=== PATIENT | male | born 1945 | race Caucasian/White ===

== ENCOUNTER 2019-05-04 05:50 | Inpatient (IN) ==
[2019-05-04 06:48] LABS: Basophils % 0.5 % (0.0-0.8); Eosinophils # 0.1 10*3/uL (0.0-0.87); Eosinophils % 2.3 % (0.00-10.9); Hematocrit 43.4 VOL% (42.0-52.0); Hemoglobin 14.6 GM/DL (14.0-18.0); Immature Granulocytes % 0.7 %; Immature Granulocytes Absolute 0.04 #; Lymphocytes # 1.3 10*3/uL (1.4-4.0); Lymphocytes % 22.2 % (21.2-54.2); Mean Corpuscular HGB Conc 33.6 GM/DL (32-36); Mean Corpuscular Volume 93.3 FL (87-102); Mean Platelet Volume 9.6 FL (9.6-12.0); Monocytes % 11.1 % (1.7-12.7); Neutrophils % 63.2 % (38.7-73.9); Platelet Count 163 T/CUMM (130-400); Red Blood Count 4.65 MC/CUMM (3.8-5.5); Red Cell Distribution Width 13.6 % (9.3-17.3); White Blood Count 5.8 T/CUMM (4-12)
[2019-05-04 07:00] LABS: INR 3.9; PT Patient Result 41.4 SECS (9.6-12.2)
[2019-05-04 07:08] LABS: Calcium 8.3 MG/DL (8.5-10.1)
[2019-05-04] MEDS ORDERED: ZALEPLON 5 MG CAPSULE PO PRN (07:27)
[2019-05-04] MEDS ORDERED: ONDANSETRON 4 MG/2 ML VIAL IV PRN (07:27)
[2019-05-04] MEDS ORDERED: DOCUSATE SODIUM 100 MG CAPSULE PO PRN (07:27)
[2019-05-04] MEDS ORDERED: MAGNESIUM SULF RIDER 4 GM in PREMIX 1 EACH IV PRN (07:27)
[2019-05-04] MEDS ORDERED: MAGNESIUM SULF RIDER 2 GM in PREMIX 1 EACH IV PRN (07:27)
[2019-05-04] MEDS ORDERED: ACETAMINOPHEN 325 MG TABLET PO PRN (07:27)
[2019-05-04] MEDS ORDERED: ACETAMINOPHEN 500 MG TABLET PO PRN (07:30)
[2019-05-04] MEDS ORDERED: NON-FORMULARY MEDICATION (Lutein 10 MG) PO SCH (09:00)
[2019-05-04] MEDS ORDERED: SIMVASTATIN 40 MG TABLET PO SCH (09:00)
[2019-05-04] MEDS ORDERED: ALBUTEROL 0.63 MG/3 ML NEB RESP TX SCH (09:00)
[2019-05-04] MEDS ORDERED: ALBUTEROL 2.5 MG/3 ML NEB RESP TX PRN (09:30)
[2019-05-04] MEDS: AMIODARONE 200 MG TABLET PO SCH ×2 (09:35→21:07)
[2019-05-04] MEDS: MULTIVITAMIN (CENTRUM) TABLET PO SCH (09:35)
[2019-05-04] MEDS: VITAMIN E 400 UNIT CAPSULE PO SCH (09:35)
[2019-05-04] MEDS: PARoxetine 20 MG TABLET PO SCH (09:36)
[2019-05-04] MEDS: ALLOPURINOL 100 MG TABLET PO SCH (09:36)
[2019-05-04] MEDS: CHOLECALCIFEROL 1,000 UNIT TABLET PO SCH (09:36)
[2019-05-04] MEDS: POTASSIUM CHLORIDE 20 MEQ TABLET PO SCH (09:37)
[2019-05-04] MEDS: DOCUSATE SODIUM 100 MG CAPSULE PO SCH (09:37)
[2019-05-04] MEDS: FUROSEMIDE 40 MG TABLET PO SCH (09:37)
[2019-05-04] MEDS: ZINC GLUCONATE 50 MG TABLET PO SCH (09:37)
[2019-05-04] MEDS: CALCIUM (CARBONATE) 600 MG TABLET PO SCH (09:37)
[2019-05-04] MEDS: LYSINE 500 MG TABLET PO SCH (09:38)
[2019-05-04 11:30] LABS: Troponin I 0.088 NG/ML (0.00-0.045)
[2019-05-04] MEDS: ALBUTEROL 0.63 MG/3 ML NEB RESP TX SCH (19:14)
[2019-05-04] MEDS: ROSUVASTATIN 20 MG TABLET PO SCH (21:07)
[2019-05-04] MEDS: MELATONIN 3 MG TABLET PO SCH (21:07)
[2019-05-04] MEDS: clonazePAM 0.5 MG TABLET PO SCH (21:07)
[2019-05-05 05:01] LABS: INR 2.6
[2019-05-05 05:03] LABS: PT Patient Result 27.9 SECS (9.6-12.2)
[2019-05-05 05:07] LABS: Calcium 8.6 MG/DL (8.5-10.1); Osmolality,Calculated 293.7 MOS/KG (273-304)
[2019-05-05 05:19] LABS: Albumin 3.2 G/DL (3.4-5.0); Bilirubin,Direct 0.12 MG/DL (0.0-0.20); Bilirubin,Indirect 0.9 MG/DL (0.0-1.0); Free T4 (Free Thyroxine) 0.82 NG/DL (0.76-1.46); Thyroid Stimulating Hormone 1.1 uIU/ml (0.358-3.74); Total Protein 5.9 G/DL (6.4-8.3)
[2019-05-05] MEDS: ALBUTEROL 0.63 MG/3 ML NEB RESP TX SCH ×2 (07:20→19:17)
[2019-05-05] MEDS: POTASSIUM CHLORIDE 20 MEQ TABLET PO SCH (10:10)
[2019-05-05] MEDS: ZINC GLUCONATE 50 MG TABLET PO SCH (10:10)
[2019-05-05] MEDS: AMIODARONE 200 MG TABLET PO SCH ×2 (10:11→21:08)
[2019-05-05] MEDS: CHOLECALCIFEROL 1,000 UNIT TABLET PO SCH (10:11)
[2019-05-05] MEDS: PARoxetine 20 MG TABLET PO SCH (10:11)
[2019-05-05] MEDS: FUROSEMIDE 40 MG TABLET PO SCH (10:11)
[2019-05-05] MEDS: DOCUSATE SODIUM 100 MG CAPSULE PO SCH (10:12)
[2019-05-05] MEDS: CALCIUM (CARBONATE) 600 MG TABLET PO SCH (10:12)
[2019-05-05] MEDS: ASPIRIN EC 81 MG TABLET PO SCH (10:12)
[2019-05-05] MEDS: METOPROLOL SUCCINATE XL 50 MG TABLET PO SCH (10:12)
[2019-05-05] MEDS: ALLOPURINOL 100 MG TABLET PO SCH (10:12)
[2019-05-05] MEDS: MULTIVITAMIN (CENTRUM) TABLET PO SCH (10:21)
[2019-05-05] MEDS: LYSINE 500 MG TABLET PO SCH (10:21)
[2019-05-05] MEDS: VITAMIN E 400 UNIT CAPSULE PO SCH (13:12)
[2019-05-05] MEDS: FLUTICASONE 50 MCG NASAL SPRAY 16 GM BOTTLE BOTH NARES PRN (18:02)
[2019-05-05] MEDS: FEXOFENADINE 180 MG TABLET PO PRN (21:07)
[2019-05-05] MEDS: ROSUVASTATIN 20 MG TABLET PO SCH (21:08)
[2019-05-05] MEDS: MELATONIN 3 MG TABLET PO SCH (21:08)
[2019-05-05] MEDS: clonazePAM 0.5 MG TABLET PO SCH (21:08)
[2019-05-06 06:19] LABS: PT Patient Result 21.6 SECS (9.6-12.2)
[2019-05-06 06:48] LABS: Calcium 8.2 MG/DL (8.5-10.1); Osmolality,Calculated 285.4 MOS/KG (273-304)
[2019-05-06] MEDS: ALBUTEROL 0.63 MG/3 ML NEB RESP TX SCH ×2 (07:30→19:37)
[2019-05-06] MEDS: CALCIUM (CARBONATE) 600 MG TABLET PO SCH (10:13)
[2019-05-06] MEDS: VITAMIN E 400 UNIT CAPSULE PO SCH (10:13)
[2019-05-06] MEDS: AMIODARONE 200 MG TABLET PO SCH ×2 (10:14→21:01)
[2019-05-06] MEDS: ASPIRIN EC 81 MG TABLET PO SCH (10:15)
[2019-05-06] MEDS: ALLOPURINOL 100 MG TABLET PO SCH (10:15)
[2019-05-06] MEDS: DOCUSATE SODIUM 100 MG CAPSULE PO SCH (10:15)
[2019-05-06] MEDS: FUROSEMIDE 40 MG TABLET PO SCH (10:15)
[2019-05-06] MEDS: ZINC GLUCONATE 50 MG TABLET PO SCH (10:16)
[2019-05-06] MEDS: PARoxetine 20 MG TABLET PO SCH (10:16)
[2019-05-06] MEDS: POTASSIUM CHLORIDE 20 MEQ TABLET PO SCH (10:16)
[2019-05-06] MEDS: METOPROLOL SUCCINATE XL 50 MG TABLET PO SCH (10:17)
[2019-05-06] MEDS: LYSINE 500 MG TABLET PO SCH (10:17)
[2019-05-06] MEDS: CHOLECALCIFEROL 1,000 UNIT TABLET PO SCH (10:17)
[2019-05-06] MEDS: MULTIVITAMIN (CENTRUM) TABLET PO SCH (10:17)
[2019-05-06] MEDS: FLUTICASONE 50 MCG NASAL SPRAY 16 GM BOTTLE BOTH NARES PRN (10:23)
[2019-05-06] MEDS: clonazePAM 0.5 MG TABLET PO SCH (21:01)
[2019-05-06] MEDS: MELATONIN 3 MG TABLET PO SCH (21:01)
[2019-05-06] MEDS: ROSUVASTATIN 20 MG TABLET PO SCH (21:02)
[2019-05-06] MEDS: FEXOFENADINE 180 MG TABLET PO PRN (21:06)
[2019-05-07 04:01] LABS: INR 1.8; PT Patient Result 19.4 SECS (9.6-12.2)
[2019-05-07 04:14] LABS: Calcium 8.4 MG/DL (8.5-10.1); Osmolality,Calculated 293.7 MOS/KG (273-304)
[2019-05-07] MEDS: ALBUTEROL 0.63 MG/3 ML NEB RESP TX SCH ×2 (07:44→20:50)
[2019-05-07] MEDS: ALLOPURINOL 100 MG TABLET PO SCH (09:04)
[2019-05-07] MEDS: FUROSEMIDE 40 MG TABLET PO SCH (09:04)
[2019-05-07] MEDS: CALCIUM (CARBONATE) 600 MG TABLET PO SCH (09:04)
[2019-05-07] MEDS: MULTIVITAMIN (CENTRUM) TABLET PO SCH (09:04)
[2019-05-07] MEDS: ZINC GLUCONATE 50 MG TABLET PO SCH (09:04)
[2019-05-07] MEDS: VITAMIN E 400 UNIT CAPSULE PO SCH (09:04)
[2019-05-07] MEDS: LYSINE 500 MG TABLET PO SCH (09:04)
[2019-05-07] MEDS: PARoxetine 20 MG TABLET PO SCH (09:04)
[2019-05-07] MEDS: ASPIRIN EC 81 MG TABLET PO SCH (09:05)
[2019-05-07] MEDS: POTASSIUM CHLORIDE 20 MEQ TABLET PO SCH (09:05)
[2019-05-07] MEDS: CHOLECALCIFEROL 1,000 UNIT TABLET PO SCH (09:05)
[2019-05-07] MEDS: DOCUSATE SODIUM 100 MG CAPSULE PO SCH (09:05)
[2019-05-07] MEDS: METOPROLOL SUCCINATE XL 50 MG TABLET PO SCH (09:07)
[2019-05-07] MEDS: AMIODARONE 200 MG TABLET PO SCH ×2 (09:08→20:59)
[2019-05-07] MEDS ORDERED: ENOXAPARIN 100 MG/ML SYRINGE SUBCUT ONE (13:00)
[2019-05-07] MEDS ORDERED: POTASSIUM CHLORIDE RIDER 10 MEQ in PREMIX 1 EACH IV PRN (13:01)
[2019-05-07] MEDS ORDERED: MAGNESIUM SULF RIDER 2 GM in PREMIX 1 EACH IV PRN (13:01)
[2019-05-07] MEDS: MELATONIN 3 MG TABLET PO SCH (20:59)
[2019-05-07] MEDS: clonazePAM 0.5 MG TABLET PO SCH (20:59)
[2019-05-07] MEDS: FEXOFENADINE 180 MG TABLET PO PRN (20:59)
[2019-05-07] MEDS: ROSUVASTATIN 20 MG TABLET PO SCH (21:00)
[2019-05-07] MEDS: SODIUM BICARB INJ 100 MEQ in SODIUM CHLORIDE 0.9% 1,000 ML IV SCH (23:50)
[2019-05-08 04:30] LABS: Basophils % 0.7 % (0.0-0.8); Eosinophils # 0.2 10*3/uL (0.0-0.87); Hematocrit 42.9 VOL% (42.0-52.0); Hemoglobin 14.4 GM/DL (14.0-18.0); Immature Granulocytes % 0.5 %; Immature Granulocytes Absolute 0.03 #; Lymphocytes # 1.6 10*3/uL (1.4-4.0); Mean Corpuscular HGB Conc 33.6 GM/DL (32-36); Mean Corpuscular Volume 91.9 FL (87-102); Mean Platelet Volume 9.9 FL (9.6-12.0); Monocytes % 10.2 % (1.7-12.7); Neutrophils % 59.6 % (38.7-73.9); Platelet Count 166 T/CUMM (130-400); Red Blood Count 4.67 MC/CUMM (3.8-5.5); Red Cell Distribution Width 13.4 % (9.3-17.3)
[2019-05-08 04:40] LABS: Calcium 8.4 MG/DL (8.5-10.1)
[2019-05-08 04:43] LABS: INR 1.3; PT Patient Result 14.6 SECS (9.6-12.2)
[2019-05-08] MEDS ORDERED: DIAZEPAM 5 MG TABLET PO ONE (06:00)
[2019-05-08] MEDS ORDERED: diphenhydrAMINE CAP 25 MG CAPSULE PO ONE (06:00)
[2019-05-08] MEDS: ALBUTEROL 0.63 MG/3 ML NEB RESP TX SCH ×2 (07:41→18:30)
[2019-05-08] MEDS ORDERED: LIDOCAINE 1% 20 ML VIAL ONE (09:58)
[2019-05-08] MEDS ORDERED: VERAPAMIL 5 MG/2 ML VIAL ONE (09:58)
[2019-05-08] MEDS ORDERED: NITROGLYCERIN DRIP 50 MG/250 ML BOTTLE IV ONE (09:58)
[2019-05-08] MEDS ORDERED: HEPARIN/NACL 0.9% 2 UNITS/ML 1,000 ML IV ONE (09:58)
[2019-05-08] MEDS ORDERED: MIDAZOLAM 2 MG/2 ML VIAL ONE ×2 (10:22→10:58)
[2019-05-08] MEDS ORDERED: fentaNYL 100 MCG/2 ML VIAL ONE (10:22)
[2019-05-08] MEDS ORDERED: ENOXAPARIN 60 MG/0.6 ML SYRINGE ONE (10:31)
[2019-05-08] MEDS ORDERED: HEPARIN/NACL 0.9% 2 UNITS/ML 500 ML IV ONE (10:55)
[2019-05-08] MEDS ORDERED: ADENOSINE 90 MG/30 ML VIAL IV ONE (10:58)
[2019-05-08] MEDS ORDERED: TICAGRELOR 90 MG TABLET ONE (11:38)
[2019-05-08] MEDS ORDERED: NITROGLYCERIN SL 0.4 MG TABLET SL PRN (11:48)
[2019-05-08] MEDS: SODIUM BICARB INJ 100 MEQ in SODIUM CHLORIDE 0.9% 1,000 ML IV SCH (13:04)
[2019-05-08] MEDS: MULTIVITAMIN (CENTRUM) TABLET PO SCH (13:33)
[2019-05-08] MEDS: CALCIUM (CARBONATE) 600 MG TABLET PO SCH (13:33)
[2019-05-08] MEDS: PARoxetine 20 MG TABLET PO SCH (13:33)
[2019-05-08] MEDS: ZINC GLUCONATE 50 MG TABLET PO SCH (13:33)
[2019-05-08] MEDS: ASPIRIN EC 81 MG TABLET PO SCH (13:33)
[2019-05-08] MEDS: CHOLECALCIFEROL 1,000 UNIT TABLET PO SCH (13:33)
[2019-05-08] MEDS: DOCUSATE SODIUM 100 MG CAPSULE PO SCH (13:34)
[2019-05-08] MEDS: ALLOPURINOL 100 MG TABLET PO SCH (13:34)
[2019-05-08] MEDS: AMIODARONE 200 MG TABLET PO SCH ×2 (13:34→21:34)
[2019-05-08] MEDS: POTASSIUM CHLORIDE 20 MEQ TABLET PO SCH (13:34)
[2019-05-08] MEDS: LYSINE 500 MG TABLET PO SCH (13:35)
[2019-05-08] MEDS: VITAMIN E 400 UNIT CAPSULE PO SCH (13:35)
[2019-05-08] MEDS: METOPROLOL SUCCINATE XL 50 MG TABLET PO SCH (13:35)
[2019-05-08 13:43] LABS: Osmolality,Calculated 292.1 MOS/KG (273-304)
[2019-05-08] MEDS ORDERED: WARFARIN 7.5 MG TABLET PO SCH (18:00)
[2019-05-08] MEDS: TICAGRELOR 90 MG TABLET PO SCH (21:34)
[2019-05-08] MEDS: ROSUVASTATIN 20 MG TABLET PO SCH (21:34)
[2019-05-08] MEDS: clonazePAM 0.5 MG TABLET PO SCH (21:34)
[2019-05-08] MEDS: MELATONIN 3 MG TABLET PO SCH (21:35)
[2019-05-09 06:22] LABS: Basophils # 0.1 10*3/uL (0.0-0.2); Basophils % 0.7 % (0.0-0.8); Eosinophils # 0.1 10*3/uL (0.0-0.87); Hematocrit 39.3 VOL% (42.0-52.0); Hemoglobin 13.3 GM/DL (14.0-18.0); Immature Granulocytes % 0.6 %; Immature Granulocytes Absolute 0.04 #; Lymphocytes # 1.1 10*3/uL (1.4-4.0); Lymphocytes % 15.6 % (21.2-54.2); Mean Corpuscular HGB Conc 33.8 GM/DL (32-36); Mean Corpuscular Volume 91.8 FL (87-102); Monocytes % 10.3 % (1.7-12.7); Neutrophils % 70.8 % (38.7-73.9); Platelet Count 154 T/CUMM (130-400); Red Blood Count 4.28 MC/CUMM (3.8-5.5); Red Cell Distribution Width 13.5 % (9.3-17.3)
[2019-05-09 06:41] LABS: Calcium 8.6 MG/DL (8.5-10.1); Osmolality,Calculated 293.7 MOS/KG (273-304)
[2019-05-09] MEDS: ALBUTEROL 0.63 MG/3 ML NEB RESP TX SCH (07:51)
[2019-05-09 08:30] VITALS: BP 141/79
[2019-05-09] MEDS: TICAGRELOR 90 MG TABLET PO SCH (09:19)
[2019-05-09] MEDS: LYSINE 500 MG TABLET PO SCH (09:19)
[2019-05-09] MEDS: DOCUSATE SODIUM 100 MG CAPSULE PO SCH (09:19)
[2019-05-09] MEDS: ASPIRIN EC 81 MG TABLET PO SCH (09:19)
[2019-05-09] MEDS: POTASSIUM CHLORIDE 20 MEQ TABLET PO SCH (09:19)
[2019-05-09] MEDS: AMIODARONE 200 MG TABLET PO SCH (09:19)
[2019-05-09] MEDS: MULTIVITAMIN (CENTRUM) TABLET PO SCH (09:19)
[2019-05-09] MEDS: VITAMIN E 400 UNIT CAPSULE PO SCH (09:19)
[2019-05-09] MEDS: ZINC GLUCONATE 50 MG TABLET PO SCH (09:19)
[2019-05-09] MEDS: CHOLECALCIFEROL 1,000 UNIT TABLET PO SCH (09:19)
[2019-05-09] MEDS: ALLOPURINOL 100 MG TABLET PO SCH (09:20)
[2019-05-09] MEDS: PARoxetine 20 MG TABLET PO SCH (09:20)
[2019-05-09] MEDS: METOPROLOL SUCCINATE XL 50 MG TABLET PO SCH (09:20)
[2019-05-09] MEDS: CALCIUM (CARBONATE) 600 MG TABLET PO SCH (09:20)
== END 2019-05-09 10:28 | disposition home or self-care (01) | DRG 247 ==
LOC: N.CL 05:50 → N.TELEN 05:50 → N.CL 05:54 → N.TELEN 08:41
PROVIDERS: ADMIT Internal Medicine Clinical Cardiac Electrophysiology; ATTEND Internal Medicine Clinical Cardiac Electrophysiology
PROC: CLWWIRE (2019-05-08 10:45)

== ENCOUNTER 2021-12-08 10:23 | Inpatient (IN) ==
[2021-12-08] MEDS ORDERED: ALUMINUM/MAGNES/SIMETH MAX STR 30 ML UDCUP PO PRN (10:31)
[2021-12-08] MEDS ORDERED: diphenhydrAMINE CAP 25 MG CAPSULE PO PRN (10:31)
[2021-12-08] MEDS ORDERED: MAGNESIUM SULF RIDER 2 GM/50 ML PREMIX IV PRN (10:31)
[2021-12-08] MEDS ORDERED: MORPHINE 2 MG/1 ML SYRINGE IV PRN (10:31)
[2021-12-08] MEDS ORDERED: ONDANSETRON 4 MG/2 ML VIAL IV PRN (10:31)
[2021-12-08] MEDS ORDERED: MAGNESIUM SULF RIDER 4 GM/100 ML PREMIX IV PRN (10:31)
[2021-12-08] MEDS ORDERED: ZALEPLON 5 MG CAPSULE PO PRN (10:31)
[2021-12-08] MEDS ORDERED: NITROGLYCERIN SL 0.4 MG TABLET SL PRN (14:21)
[2021-12-08 14:28] LABS: Calcium 8.8 MG/DL (8.5-10.1); Osmolality,Calculated 287.1 MOS/KG (273-304); Potassium 3.5 MMOL/L (3.5-5.1)
[2021-12-08] MEDS ORDERED: ALBUTEROL 2.5 MG/3 ML NEB RESP TX PRN (15:30)
[2021-12-08 15:37] LABS: INR 2.6
[2021-12-08 15:38] LABS: PT Patient Result 27.2 SECS (10.5-12.0)
[2021-12-08] MEDS: ROSUVASTATIN 20 MG TABLET PO SCH (21:04)
[2021-12-09 05:57] LABS: Basophils % 0.3 % (0.0-0.8); Eosinophils % 0.1 % (0.00-10.9); Hematocrit 38.4 VOL% (42.0-52.0); Hemoglobin 12.5 GM/DL (14.0-18.0); Immature Granulocytes % 0.6 %; Immature Granulocytes Absolute 0.06 #; Lymphocytes # 1.1 10*3/uL (1.4-4.0); Lymphocytes % 10.7 % (21.2-54.2); Mean Corpuscular HGB Conc 32.6 GM/DL (32-36); Mean Corpuscular Volume 92.1 FL (87-102); Mean Platelet Volume 9.5 FL (9.6-12.0); Monocytes # 1.2 10*3/uL (0.11-0.8); Neutrophils % 77.3 % (38.7-73.9); Platelet Count 177 T/CUMM (130-400); Red Blood Count 4.17 MC/CUMM (3.8-5.5); White Blood Count 10.6 T/CUMM (4-12)
[2021-12-09 06:06] LABS: INR 2.4
[2021-12-09 06:07] LABS: PT Patient Result 24.5 SECS (10.5-12.0)
[2021-12-09 06:17] LABS: Calcium 8.8 MG/DL (8.5-10.1); Osmolality,Calculated 287.1 MOS/KG (273-304); Potassium 3.5 MMOL/L (3.5-5.1)
[2021-12-09 06:34] LABS: Bilirubin,Total 1.1 MG/DL (0.20-1.00); Calcium 8.5 MG/DL (8.5-10.1); Osmolality,Calculated 290.8 MOS/KG (273-304); Potassium 4.2 MMOL/L (3.5-5.1); Total Protein 6.1 G/DL (6.4-8.2)
[2021-12-09] MEDS ORDERED: POTASSIUM CHLORIDE 20 MEQ TABLET PO ONE (09:52)
[2021-12-09] MEDS ORDERED: MAGNESIUM SULF RIDER 2 GM/50 ML PREMIX IV ONE (09:52)
[2021-12-09] MEDS: FERROUS SULFATE 325 MG TABLET PO SCH (10:24)
[2021-12-09] MEDS: PANTOPRAZOLE 40 MG TABLET PO SCH (10:24)
[2021-12-09] MEDS: allopurinoL 100 MG TABLET PO SCH (10:24)
[2021-12-09] MEDS: IRON (CARBONYL)/VIT C/B12/FA TABLET PO SCH (10:24)
[2021-12-09] MEDS: amLODIPine 10 MG TABLET PO SCH (10:24)
[2021-12-09] MEDS: PARoxetine 20 MG TABLET PO SCH (10:31)
[2021-12-09] MEDS: ACETAMINOPHEN 325 MG TABLET PO PRN (15:00)
[2021-12-09] MEDS: SODIUM CHLORIDE 0.45% 1,000 ML IV SCH (15:00)
[2021-12-09 15:19] LABS: Basophils % 0.1 % (0.0-0.8); Hematocrit 39.1 VOL% (42.0-52.0); Hemoglobin 13.1 GM/DL (14.0-18.0); Immature Granulocytes % 0.5 %; Immature Granulocytes Absolute 0.06 #; Lymphocytes # 0.9 10*3/uL (1.4-4.0); Lymphocytes % 7.3 % (21.2-54.2); Mean Corpuscular HGB Conc 33.5 GM/DL (32-36); Mean Corpuscular Volume 91.4 FL (87-102); Monocytes # 0.9 10*3/uL (0.11-0.8); Monocytes % 7.2 % (1.7-12.7); Neutrophils % 84.9 % (38.7-73.9); Platelet Count 207 T/CUMM (130-400); Red Blood Count 4.28 MC/CUMM (3.8-5.5); Red Cell Distribution Width 15.2 % (9.3-17.3); White Blood Count 12.3 T/CUMM (4-12)
[2021-12-09 15:36] LABS: Calcium 8.7 MG/DL (8.5-10.1); Osmolality,Calculated 285.3 MOS/KG (273-304); Potassium 3.7 MMOL/L (3.5-5.1)
[2021-12-09 16:08] LABS: Bacteria,Urine Occasional /HPF (Few); Mucus,Urine Occasional /LPF (Occasional); Squamous Epithelial Cell,Urine Occasional /HPF (0-10)
[2021-12-09 16:15] LABS: Bilirubin,Urine Negative (Negative); Blood, Urine Negative (Negative); Glucose,Urine (UA) Negative (Negative); Ketones,Urine 15 mg/dL (Negative); Nitrite,Urine Negative (Negative); Protein,Urine 100 mg/dL (Negative); Urine Appearance Clear (Clear); Urine Color Yellow (Yellow); Urine Urobilinogen 0.2 eU/dL (<2.0); Urine pH 5.5 (4.5-8.0)
[2021-12-09] MEDS: WARFARIN 2.5 MG TABLET PO SCH (16:45)
[2021-12-09] MEDS: cefTRIAXone 1,000 MG in SODIUM CHLORIDE 0.9% 100 ML IV SCH (16:45)
[2021-12-09] MEDS: AZITHROMYCIN INJ 500 MG in SODIUM CHLORIDE 0.9% 250 ML IV SCH (17:45)
[2021-12-09] MEDS: ROSUVASTATIN 20 MG TABLET PO SCH (21:27)
[2021-12-09] MEDS: FAMOTIDINE 20 MG TABLET PO SCH (21:28)
[2021-12-09] MEDS: ASCORBIC ACID 500 MG TABLET PO SCH (21:28)
[2021-12-10 04:35] LABS: Basophils % 0.3 % (0.0-0.8); Hematocrit 38.5 VOL% (42.0-52.0); Hemoglobin 12.7 GM/DL (14.0-18.0); Immature Granulocytes % 0.5 %; Immature Granulocytes Absolute 0.06 #; Lymphocytes # 1.3 10*3/uL (1.4-4.0); Lymphocytes % 11.7 % (21.2-54.2); Mean Corpuscular Volume 93.9 FL (87-102); Mean Platelet Volume 9.8 FL (9.6-12.0); Monocytes # 1.4 10*3/uL (0.11-0.8); Monocytes % 12.8 % (1.7-12.7); Neutrophils % 74.7 % (38.7-73.9); Platelet Count 176 T/CUMM (130-400); Red Cell Distribution Width 15.1 % (9.3-17.3); White Blood Count 11.1 T/CUMM (4-12)
[2021-12-10 04:50] LABS: Calcium 8.7 MG/DL (8.5-10.1); Osmolality,Calculated 279.7 MOS/KG (273-304); Potassium 4.1 MMOL/L (3.5-5.1)
[2021-12-10] MEDS: SODIUM CHLORIDE 0.45% 1,000 ML IV SCH (06:18)
[2021-12-10] MEDS: IRON (CARBONYL)/VIT C/B12/FA TABLET PO SCH (08:01)
[2021-12-10] MEDS: WARFARIN 2.5 MG TABLET PO SCH (08:01)
[2021-12-10] MEDS: FAMOTIDINE 20 MG TABLET PO SCH ×2 (08:01→20:59)
[2021-12-10] MEDS: PANTOPRAZOLE 40 MG TABLET PO SCH (08:02)
[2021-12-10] MEDS: amLODIPine 10 MG TABLET PO SCH (08:02)
[2021-12-10] MEDS: ASCORBIC ACID 500 MG TABLET PO SCH ×2 (08:02→20:59)
[2021-12-10] MEDS: FERROUS SULFATE 325 MG TABLET PO SCH (08:02)
[2021-12-10] MEDS: allopurinoL 100 MG TABLET PO SCH (08:03)
[2021-12-10] MEDS: PARoxetine 20 MG TABLET PO SCH (08:11)
[2021-12-10] MEDS ORDERED: clonazePAM 0.5 MG TABLET PO PRN (14:17)
[2021-12-10] MEDS: cefTRIAXone 1,000 MG in SODIUM CHLORIDE 0.9% 100 ML IV SCH (15:13)
[2021-12-10] MEDS: AZITHROMYCIN INJ 500 MG in SODIUM CHLORIDE 0.9% 250 ML IV SCH (15:46)
[2021-12-10] MEDS: PROPRANOLOL 60 MG PO SCH (15:46)
[2021-12-10] MEDS: ACETAMINOPHEN 325 MG TABLET PO PRN (16:31)
[2021-12-10] MEDS: clonazePAM 0.5 MG TABLET PO SCH (16:33)
[2021-12-10] MEDS: ROSUVASTATIN 20 MG TABLET PO SCH (20:59)
[2021-12-11 05:16] LABS: Basophils % 0.3 % (0.0-0.8); Eosinophils % 0.1 % (0.00-10.9); Hematocrit 33.4 VOL% (42.0-52.0); Immature Granulocytes % 0.5 %; Immature Granulocytes Absolute 0.05 #; Lymphocytes # 1.2 10*3/uL (1.4-4.0); Lymphocytes % 11.3 % (21.2-54.2); Mean Corpuscular HGB Conc 32.9 GM/DL (32-36); Mean Platelet Volume 10.6 FL (9.6-12.0); Monocytes # 1.3 10*3/uL (0.11-0.8); Monocytes % 12.2 % (1.7-12.7); Neutrophils % 75.6 % (38.7-73.9); Platelet Count 196 T/CUMM (130-400); Red Blood Count 3.59 MC/CUMM (3.8-5.5); Red Cell Distribution Width 15.2 % (9.3-17.3); White Blood Count 10.3 T/CUMM (4-12)
[2021-12-11 05:28] LABS: INR 2.8
[2021-12-11 05:29] LABS: PT Patient Result 28.3 SECS (10.5-12.0)
[2021-12-11 05:42] LABS: Calcium 8.6 MG/DL (8.5-10.1); Osmolality,Calculated 285.4 MOS/KG (273-304); Potassium 3.5 MMOL/L (3.5-5.1)
[2021-12-11] MEDS ORDERED: AZITHROMYCIN 250 MG TABLET PO ONE (06:58)
[2021-12-11] MEDS: FERROUS SULFATE 325 MG TABLET PO SCH (08:22)
[2021-12-11] MEDS: clonazePAM 0.5 MG TABLET PO SCH ×2 (08:22→20:55)
[2021-12-11] MEDS: WARFARIN 2.5 MG TABLET PO SCH (08:22)
[2021-12-11] MEDS: IRON (CARBONYL)/VIT C/B12/FA TABLET PO SCH (08:22)
[2021-12-11] MEDS: amLODIPine 10 MG TABLET PO SCH (08:22)
[2021-12-11] MEDS: FAMOTIDINE 20 MG TABLET PO SCH ×2 (08:23→20:54)
[2021-12-11] MEDS: PANTOPRAZOLE 40 MG TABLET PO SCH (08:23)
[2021-12-11] MEDS: allopurinoL 100 MG TABLET PO SCH (08:23)
[2021-12-11] MEDS: ASCORBIC ACID 500 MG TABLET PO SCH ×2 (08:23→20:54)
[2021-12-11] MEDS: PARoxetine 20 MG TABLET PO SCH (08:23)
[2021-12-11] MEDS: PROPRANOLOL 60 MG PO SCH (08:23)
[2021-12-11] MEDS ORDERED: ASPIRIN EC 81 MG TABLET PO SCH (09:00)
[2021-12-11] MEDS: ROSUVASTATIN 20 MG TABLET PO SCH (20:54)
[2021-12-12 05:15] LABS: Basophils % 0.4 % (0.0-0.8); Eosinophils # 0.1 10*3/uL (0.0-0.87); Eosinophils % 1.7 % (0.00-10.9); Hematocrit 30.6 VOL% (42.0-52.0); Hemoglobin 10.1 GM/DL (14.0-18.0); Immature Granulocytes % 0.4 %; Immature Granulocytes Absolute 0.03 #; Lymphocytes # 0.9 10*3/uL (1.4-4.0); Lymphocytes % 12.2 % (21.2-54.2); Mean Corpuscular Volume 92.7 FL (87-102); Monocytes # 0.8 10*3/uL (0.11-0.8); Monocytes % 10.7 % (1.7-12.7); Neutrophils % 74.6 % (38.7-73.9); Platelet Count 196 T/CUMM (130-400); White Blood Count 7.7 T/CUMM (4-12)
[2021-12-12 05:33] LABS: Calcium 8.6 MG/DL (8.5-10.1); Osmolality,Calculated 287.4 MOS/KG (273-304); Potassium 3.5 MMOL/L (3.5-5.1)
[2021-12-12] MEDS ORDERED: POTASSIUM CHLORIDE 20 MEQ TABLET PO ONE (09:14)
[2021-12-12] MEDS: amLODIPine 10 MG TABLET PO SCH (09:45)
[2021-12-12] MEDS: ASCORBIC ACID 500 MG TABLET PO SCH ×2 (09:45→21:11)
[2021-12-12] MEDS: IRON (CARBONYL)/VIT C/B12/FA TABLET PO SCH (09:45)
[2021-12-12] MEDS: clonazePAM 0.5 MG TABLET PO SCH ×2 (09:45→22:23)
[2021-12-12] MEDS: FAMOTIDINE 20 MG TABLET PO SCH ×2 (09:46→21:11)
[2021-12-12] MEDS: WARFARIN 2.5 MG TABLET PO SCH (09:46)
[2021-12-12] MEDS: PANTOPRAZOLE 40 MG TABLET PO SCH (09:46)
[2021-12-12] MEDS: allopurinoL 100 MG TABLET PO SCH (09:46)
[2021-12-12] MEDS: PROPRANOLOL 60 MG PO SCH (09:46)
[2021-12-12] MEDS: PARoxetine 20 MG TABLET PO SCH (09:46)
[2021-12-12] MEDS: FERROUS SULFATE 325 MG TABLET PO SCH (09:46)
[2021-12-12 10:42] LABS: INR 2.4
[2021-12-12] MEDS ORDERED: CYCLOBENZAPRINE 10 MG TABLET PO PRN (10:42)
[2021-12-12 10:43] LABS: PT Patient Result 24.5 SECS (10.5-12.0)
[2021-12-12] MEDS: ROSUVASTATIN 20 MG TABLET PO SCH (21:11)
[2021-12-12] MEDS: ACETAMINOPHEN 325 MG TABLET PO PRN (21:12)
[2021-12-13 05:39] LABS: Basophils % 0.4 % (0.0-0.8); Eosinophils # 0.2 10*3/uL (0.0-0.87); Eosinophils % 2.5 % (0.00-10.9); Hematocrit 32.3 VOL% (42.0-52.0); Hemoglobin 10.5 GM/DL (14.0-18.0); Immature Granulocytes % 0.5 %; Immature Granulocytes Absolute 0.04 #; Lymphocytes # 0.8 10*3/uL (1.4-4.0); Lymphocytes % 9.3 % (21.2-54.2); Mean Corpuscular HGB Conc 32.5 GM/DL (32-36); Mean Corpuscular Volume 93.4 FL (87-102); Monocytes % 11.6 % (1.7-12.7); Neutrophils % 75.7 % (38.7-73.9); Platelet Count 217 T/CUMM (130-400); Red Blood Count 3.46 MC/CUMM (3.8-5.5); Red Cell Distribution Width 14.6 % (9.3-17.3); White Blood Count 8.5 T/CUMM (4-12)
[2021-12-13 05:45] LABS: INR 2.6; PT Patient Result 26.8 SECS (10.5-12.0)
[2021-12-13 06:00] LABS: Calcium 8.6 MG/DL (8.5-10.1); Osmolality,Calculated 291.1 MOS/KG (273-304); Potassium 3.8 MMOL/L (3.5-5.1)
[2021-12-13] MEDS: WARFARIN 2.5 MG TABLET PO SCH (10:02)
[2021-12-13] MEDS: clonazePAM 0.5 MG TABLET PO SCH ×2 (10:02→21:14)
[2021-12-13] MEDS: IRON (CARBONYL)/VIT C/B12/FA TABLET PO SCH (10:02)
[2021-12-13] MEDS: PANTOPRAZOLE 40 MG TABLET PO SCH (10:03)
[2021-12-13] MEDS: PARoxetine 20 MG TABLET PO SCH (10:03)
[2021-12-13] MEDS: FERROUS SULFATE 325 MG TABLET PO SCH (10:03)
[2021-12-13] MEDS: ASCORBIC ACID 500 MG TABLET PO SCH ×2 (10:03→20:30)
[2021-12-13] MEDS: allopurinoL 100 MG TABLET PO SCH (10:03)
[2021-12-13] MEDS: FAMOTIDINE 20 MG TABLET PO SCH ×2 (10:03→20:30)
[2021-12-13] MEDS: amLODIPine 10 MG TABLET PO SCH (10:03)
[2021-12-13] MEDS: PROPRANOLOL 60 MG PO SCH (10:05)
[2021-12-13] MEDS: CYCLOBENZAPRINE 10 MG TABLET PO SCH ×3 (10:06→21:10)
[2021-12-13] MEDS: ROSUVASTATIN 20 MG TABLET PO SCH (20:30)
[2021-12-14] MEDS: ACETAMINOPHEN 325 MG TABLET PO PRN (00:36)
[2021-12-14] MEDS ORDERED: clonazePAM 0.5 MG TABLET PO PRN (01:11)
[2021-12-14 05:24] LABS: Basophils % 0.3 % (0.0-0.8); Eosinophils # 0.2 10*3/uL (0.0-0.87); Eosinophils % 2.2 % (0.00-10.9); Hematocrit 34.4 VOL% (42.0-52.0); Immature Granulocytes % 0.6 %; Immature Granulocytes Absolute 0.06 #; Lymphocytes % 10.3 % (21.2-54.2); Mean Corpuscular Volume 92.5 FL (87-102); Mean Platelet Volume 9.2 FL (9.6-12.0); Neutrophils % 75.6 % (38.7-73.9); Platelet Count 233 T/CUMM (130-400); Red Blood Count 3.72 MC/CUMM (3.8-5.5); Red Cell Distribution Width 14.6 % (9.3-17.3); White Blood Count 9.4 T/CUMM (4-12)
[2021-12-14 05:34] LABS: INR 2.7
[2021-12-14 05:36] LABS: PT Patient Result 28.1 SECS (10.5-12.0)
[2021-12-14 05:45] LABS: Calcium 8.7 MG/DL (8.5-10.1); Osmolality,Calculated 287.3 MOS/KG (273-304)
[2021-12-14] MEDS: cefTRIAXone 1,000 MG in SODIUM CHLORIDE 0.9% 100 ML IV SCH (07:33)
[2021-12-14] MEDS: PANTOPRAZOLE 40 MG TABLET PO SCH (09:13)
[2021-12-14] MEDS: ASCORBIC ACID 500 MG TABLET PO SCH ×2 (09:14→21:21)
[2021-12-14] MEDS: FERROUS SULFATE 325 MG TABLET PO SCH (09:14)
[2021-12-14] MEDS: FAMOTIDINE 20 MG TABLET PO SCH ×2 (09:14→21:21)
[2021-12-14] MEDS: allopurinoL 100 MG TABLET PO SCH (09:14)
[2021-12-14] MEDS: IRON (CARBONYL)/VIT C/B12/FA TABLET PO SCH (09:14)
[2021-12-14] MEDS: CYCLOBENZAPRINE 10 MG TABLET PO SCH ×3 (09:14→21:21)
[2021-12-14] MEDS: metroNIDAZOLE INJ 500 MG/100 ML PREMIX IV SCH ×2 (09:15→16:10)
[2021-12-14] MEDS: amLODIPine 10 MG TABLET PO SCH (09:16)
[2021-12-14] MEDS: PARoxetine 20 MG TABLET PO SCH (09:19)
[2021-12-14] MEDS: PROPRANOLOL 60 MG PO SCH (09:25)
[2021-12-14 13:34] LABS: Bacteria,Urine Occasional /HPF (Few); RBC,Urine 2 /HPF (0-4)
[2021-12-14 13:35] LABS: Bilirubin,Urine Negative (Negative); Glucose,Urine (UA) Negative (Negative); Ketones,Urine Negative (Negative); Nitrite,Urine Negative (Negative); Protein,Urine 100 mg/dL (Negative); Urine Appearance Cloudy (Clear); Urine Color Dark Yellow (Yellow); Urine Specific Gravity 1.015 (1.001-1.035)
[2021-12-14 13:36] LABS: Blood, Urine Negative (Negative)
[2021-12-14] MEDS: ROSUVASTATIN 20 MG TABLET PO SCH (21:20)
[2021-12-15 05:31] LABS: Basophils % 0.3 % (0.0-0.8); Eosinophils # 0.3 10*3/uL (0.0-0.87); Eosinophils % 2.7 % (0.00-10.9); Hematocrit 31.4 VOL% (42.0-52.0); Hemoglobin 10.2 GM/DL (14.0-18.0); Immature Granulocytes % 0.5 %; Immature Granulocytes Absolute 0.05 #; Lymphocytes % 8.9 % (21.2-54.2); Mean Corpuscular HGB Conc 32.5 GM/DL (32-36); Mean Corpuscular Volume 92.1 FL (87-102); Mean Platelet Volume 9.4 FL (9.6-12.0); Monocytes # 1.1 10*3/uL (0.11-0.8); Monocytes % 9.7 % (1.7-12.7); Neutrophils % 77.9 % (38.7-73.9); Platelet Count 264 T/CUMM (130-400); Red Blood Count 3.41 MC/CUMM (3.8-5.5); Red Cell Distribution Width 14.5 % (9.3-17.3); White Blood Count 10.9 T/CUMM (4-12)
[2021-12-15 05:38] LABS: INR 2.6
[2021-12-15 05:39] LABS: PT Patient Result 26.5 SECS (10.5-12.0)
[2021-12-15] MEDS: metroNIDAZOLE INJ 500 MG/100 ML PREMIX IV SCH ×4 (05:44→16:59)
[2021-12-15 05:56] LABS: Calcium 8.8 MG/DL (8.5-10.1); Osmolality,Calculated 288.3 MOS/KG (273-304)
[2021-12-15] MEDS: cefTRIAXone 1,000 MG in SODIUM CHLORIDE 0.9% 100 ML IV SCH (09:12)
[2021-12-15] MEDS: CYCLOBENZAPRINE 10 MG TABLET PO SCH ×3 (09:12→21:21)
[2021-12-15] MEDS: IRON (CARBONYL)/VIT C/B12/FA TABLET PO SCH (09:13)
[2021-12-15] MEDS: FERROUS SULFATE 325 MG TABLET PO SCH (09:13)
[2021-12-15] MEDS: PARoxetine 20 MG TABLET PO SCH (09:13)
[2021-12-15] MEDS: ASCORBIC ACID 500 MG TABLET PO SCH ×2 (09:13→21:21)
[2021-12-15] MEDS: allopurinoL 100 MG TABLET PO SCH (09:13)
[2021-12-15] MEDS: amLODIPine 10 MG TABLET PO SCH (09:13)
[2021-12-15] MEDS: PANTOPRAZOLE 40 MG TABLET PO SCH (09:14)
[2021-12-15] MEDS: PROPRANOLOL 60 MG PO SCH (09:14)
[2021-12-15] MEDS: FAMOTIDINE 20 MG TABLET PO SCH ×2 (09:14→21:21)
[2021-12-15 09:52] LABS: Calcium 8.8 MG/DL (8.5-10.1); Osmolality,Calculated 287.4 MOS/KG (273-304); Potassium 3.9 MMOL/L (3.5-5.1)
[2021-12-15] MEDS ORDERED: AZITHROMYCIN INJ 500 MG in SODIUM CHLORIDE 0.9% 250 ML IV SCH (10:00)
[2021-12-15] MEDS: POLYETHYLENE GLYCOL POWDER 17 GM PACK PO SCH (11:47)
[2021-12-15] MEDS ORDERED: WARFARIN 2 MG TABLET PO SCH (18:00)
[2021-12-15] MEDS: DOCUSATE SODIUM 100 MG CAPSULE PO SCH (21:21)
[2021-12-15] MEDS: ROSUVASTATIN 20 MG TABLET PO SCH (21:21)
[2021-12-16] MEDS: metroNIDAZOLE INJ 500 MG/100 ML PREMIX IV SCH (01:54)
[2021-12-16 05:50] LABS: Basophils % 0.3 % (0.0-0.8); Eosinophils # 0.4 10*3/uL (0.0-0.87); Eosinophils % 3.3 % (0.00-10.9); Hematocrit 30.9 VOL% (42.0-52.0); Hemoglobin 10.1 GM/DL (14.0-18.0); Immature Granulocytes Absolute 0.12 #; Lymphocytes # 0.9 10*3/uL (1.4-4.0); Lymphocytes % 7.8 % (21.2-54.2); Mean Corpuscular HGB Conc 32.7 GM/DL (32-36); Mean Corpuscular Volume 93.6 FL (87-102); Mean Platelet Volume 9.3 FL (9.6-12.0); Monocytes # 1.3 10*3/uL (0.11-0.8); Neutrophils % 76.6 % (38.7-73.9); Platelet Count 308 T/CUMM (130-400); Red Cell Distribution Width 14.6 % (9.3-17.3); White Blood Count 11.9 T/CUMM (4-12)
[2021-12-16 06:07] LABS: INR 2.3
[2021-12-16 06:18] LABS: PT Patient Result 23.8 SECS (10.5-12.0)
[2021-12-16 07:55] LABS: Calcium 8.6 MG/DL (8.5-10.1); Osmolality,Calculated 285.4 MOS/KG (273-304); Potassium 4.3 MMOL/L (3.5-5.1)
[2021-12-16] MEDS ORDERED: CIPROFLOXACIN 500 MG TABLET PO SCH (09:00)
[2021-12-16] MEDS: POLYETHYLENE GLYCOL POWDER 17 GM PACK PO SCH (09:22)
[2021-12-16] MEDS: amLODIPine 10 MG TABLET PO SCH (09:22)
[2021-12-16] MEDS: allopurinoL 100 MG TABLET PO SCH (09:23)
[2021-12-16] MEDS: DOCUSATE SODIUM 100 MG CAPSULE PO SCH (09:24)
[2021-12-16] MEDS: PANTOPRAZOLE 40 MG TABLET PO SCH (09:24)
[2021-12-16] MEDS: IRON (CARBONYL)/VIT C/B12/FA TABLET PO SCH (09:25)
[2021-12-16] MEDS: PARoxetine 20 MG TABLET PO SCH (09:25)
[2021-12-16] MEDS: FAMOTIDINE 20 MG TABLET PO SCH (09:26)
[2021-12-16] MEDS: ASCORBIC ACID 500 MG TABLET PO SCH (09:27)
[2021-12-16] MEDS: CYCLOBENZAPRINE 10 MG TABLET PO SCH (09:29)
[2021-12-16] MEDS: FERROUS SULFATE 325 MG TABLET PO SCH (09:30)
[2021-12-16] MEDS: PROPRANOLOL 60 MG PO SCH (09:34)
[2021-12-16 12:40] VITALS: BP 128/65
[2021-12-16] MEDS ORDERED: metroNIDAZOLE 500 MG TABLET PO SCH (14:00)
== END 2021-12-16 13:25 | disposition swing bed (61) | DRG 309 ==
LOC: N.CC 12:25 → N.TELES 12-10 17:41
PROVIDERS: ADMIT Internal Medicine Cardiovascular Disease; ATTEND Internal Medicine Cardiovascular Disease